=== PATIENT | female | born 1950 | race Caucasian/White ===

== ENCOUNTER 2016-06-05 10:37 | Emergency (ER) | payer OTHER, MEDICARE ==
[2016-06-05] MEDS ORDERED: MORPHINE SULFATE 30 MG TABLET PO ONE (11:45)
[2016-06-05] MEDS ORDERED: MORPHINE SULFATE 30 MG TAB.PRT.SR PO ONE (11:45)
[2016-06-05 11:54] LABS: ABSOLUTE NEUTROPHIL COUNT 2.9 K/mm3 (1.8-7.7); BASO # 0.1 K/mm3 (0.0-0.2); EOS # 0.2 (0.0-0.5); EOS % 4.4 % (0.9-2.9); HEMATOCRIT 37.9 % (37.0-47.0); HEMOGLOBIN 12.1 gm/l (12.0-16.0); IMM NEUT% 0.4 % (0-1); LYMPH # 1.4 (1.0-4.8); LYMPH % 26.4 % (15-45); MEAN CELL VOLUME 94.8 fl (81.0-99.0); MEAN CORPUSCULAR HEMOGLOBIN 30.3 pg (27.0-31.0); MEAN CORPUSCULAR HGB CONC 31.9 g/dl (33.0-37.0); MONO # 0.6 (0.0-0.8); MONO % 12.2 % (4-12); NEUT % 55.6 % (43-75); PLATELET COUNT 220 K/mm3 (130-400); RED CELL DISTRIBUTION WIDTH 12.8 % (11.5-14.5)
[2016-06-05 12:13] LABS: ALB/GLOB RATIO 1.3 (>1.0); ALBUMIN 3.7 gm/dL (3.5-5.7); CALCIUM 8.9 mg/dL (8.6-10.3)
[2016-06-05 12:15] LABS: INR 0.94; PROTHROMBIN TIME 9.9 SECONDS (9.3-11.4)
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
== END 2016-06-05 13:09 | disposition home or self-care (01) ==
LOC: ED 10:37
DX: S39.81XA Other specified injuries of abdomen, initial encounter (principal); L76.34 Postprocedural seroma of skin and subcutaneous tissue following other procedure; V43.62XA Car passenger injured in collision with other type car in traffic accident, initial encounter; Y92.410 Unspecified street and highway as the place of occurrence of the external cause
CPT/HCPCS: 83690; 82150; 85025; 80053; 85610; 74176; 99284; 99283; A9270 ×2